=== PATIENT | female | born 1955 ===

== ENCOUNTER 2019-07-07 00:39 | Emergency (ER) | payer MEDICARE ==
[~2019-07-07] VITALS: Ht 165.1 cm; Wt 136.1 kg
[2019-07-07 01:26] LABS: ABG BASE EXCESS -12.8 mmol/L (-2.0-2.0); ARTERIAL BLOOD GAS PH 7.096 (7.35-7.45)
== END 2019-07-07 01:55 | disposition expired ==
LOC: ED 00:39
PROVIDERS: Emergency Medicine Emergency Medical Services
DX: I46.9 Cardiac arrest, cause unspecified (principal); I48.91 Unspecified atrial fibrillation; E11.9 Type 2 diabetes mellitus without complications; I10 Essential (primary) hypertension; G35 Multiple sclerosis; Z93.0 Tracheostomy status; Z86.718 Personal history of other venous thrombosis and embolism; Z86.711 Personal history of pulmonary embolism